=== PATIENT | female | born 1985 | race African-American/Black ===

== ENCOUNTER 2019-06-02 19:30 | Emergency (ER) | payer MEDICAID ==
[~2019-06-02] VITALS: Ht 160 cm; Wt 83.5 kg
[2019-06-02 19:40] VITALS: BP 122/69
--- NOTE | 2019-06-02 19:43 | NUR ---
TO LOBBY A/W BED AMBULATORY
--- NOTE | 2019-06-02 20:03 | NUR ---
PT TAKEN TO BED 1
--- NOTE | 2019-06-02 20:12 | NUR ---
PT BIB SELF WITH SORE THROAT , NECK PAIN FOR 2 WEEKS. STATES FEELS LIKE SWOLLEN LYMH NODE AT THE YONY OF THE THROAT, SLIGHT TENDERNESS WHILE PALPATING THE NECK. STATES HAVINGF DIFFCULTY WHILE SWALLOWING. DENIES ANY FEVER, CHILLS, N/V/D AT THIS TIME. NO MEDS TAKEN AT HOME. NO MEDICAL HX. RESP EVEN AND NON-LABORED. DENIES ANY REACTION TO MEDS. ER MD TO SEE THE PT.WILL CONTINUE TO MONITOR PT.
[2019-06-02 21:23] VITALS: BP 122/69
--- NOTE | 2019-06-02 21:23 | NUR ---
Patient discharged with v/s stable. Written and verbal after care instructions given and explained. Patient alert, oriented and verbalized understanding of instructions. Ambulatory with steady gait. All questions addressed prior to discharge. ID band removed. Patient advised to follow up with PMD. Rx of AZITHROMYCIN, PREDNISONE AND IBUPROFEN given. Patient educated on indication of medication including possible reaction and side effects. Opportunity to ask questions provided and answered.
== END 2019-06-02 21:23 | disposition home or self-care (01) ==
LOC: MED 19:30
DX: J02.9 Acute pharyngitis, unspecified (principal)
CPT/HCPCS: 87081; 99283